=== PATIENT | male | born 1955 | race Caucasian/White ===

== ENCOUNTER 2021-10-25 00:36 | Emergency (ER) | payer MEDICARE, OTHER ==
[~2021-10-25] VITALS: Ht 182.9 cm; Wt 83.9 kg
[2021-10-25 00:36] VITALS: BP 110/66
--- NOTE | 2021-10-25 01:38 | NUR ---
CALLED THE FACILITY MULTIPLE TIMES TO FOLLOW WITH WITH NURSE JOEL RN REGARDING PT. AT FIRST WAS PLACED ON HOLD UNTIL IT GOT BUSY THEN NO ASNWER AFTER MULTIPLE CALL ATTEMPTS
--- NOTE | 2021-10-25 02:11 | NUR ---
Leslie soriano in [facility] - 10/25/21 at 0214 by DEVANTE COVID SWAB COLLECTED AND SENT TO[facility]
--- NOTE | 2021-10-25 02:27 | NUR ---
[facility] AT BEDSIDE FOR PT TRANSPORT BACK TO HIS FACILITY. REPORT GIVEN TO EMT. PT IS IN STABLE CONDITION FOR TRANSPORT
== END 2021-10-25 02:41 ==
LOC: ER 00:40
DX: I82.402 Acute embolism and thrombosis of unspecified deep veins of left lower extremity (principal)

== ENCOUNTER 2025-05-07 11:26 | Emergency (ER) | payer MEDICARE, OTHER ==
[~2025-05-07] VITALS: Ht 182.9 cm; Wt 84.8 kg
[2025-05-07 11:45] VITALS: BP 121/67; TEMP 98.5; O2SAT 96
[2025-05-07 12:33] LABS: BASOPHILS # (AUTO) 0.1 K/uL (0.0-0.2); BASOPHILS % (AUTO) 1.1 % (0.0-2.0); EOSINOPHILS # (AUTO) 0.5 K/uL (0.0-0.7); EOSINOPHILS % (AUTO) 8.1 % (0.0-6.0); HEMATOCRIT 45 % (39-51); HEMOGLOBIN 14.8 g/dL (13.5-17.5); LYMPHOCYTES # (AUTO) 1.7 K/uL (0.8-4.8); MEAN CORPUSCULAR HEMOGLOBIN 28 PG (26.0-33.0); MEAN CORPUSCULAR HGB CONC 33 g/dl (31.0-36.0); MEAN CORPUSCULAR VOLUME 87 fL (80-96); MONOCYTES # (AUTO) 0.7 K/uL (0.1-1.30); MONOCYTES % (AUTO) 12.2 % (2.0-12.0); NEUTROPHILS % (AUTO) 50.6 % (43.0-81.0); PLATELET COUNT (AUTO) 145 K/uL (150-450); RED BLOOD CELL COUNT(AUTO) 5.21 MIL/uL (4.5-6.0); RED CELL DISTRIBUTION WIDTH 14.5 % (11.5-15.0)
[2025-05-07 12:44] LABS: CALCIUM, SERUM 8.8 mg/dL (8.5-10.1); CREATININE 0.8 mg/dL (0.6-1.3); POTASSIUM 3.8 mmol/L (3.5-5.1)
[2025-05-07 12:59] LABS: INR 1.04 (0.91-1.10); PARTIAL THROMBOPLASTIN TIME 26.2 SEC (24.3-34.3)
[2025-05-07] MEDS ORDERED: IV NS 0.9% 250 ML IV ONE (13:10)
[2025-05-07] MEDS ORDERED: IOHEXOL-350 100 ML VIAL IV ONE (13:10)
[2025-05-07] MEDS ORDERED: POLY17PO4 PO (13:57)
[2025-05-07] MEDS ORDERED: FOLI0.4T6 PO (13:57)
[2025-05-07] MEDS ORDERED: CRAN300T PO (13:57)
[2025-05-07] MEDS ORDERED: FLUT16SP BNOSTRILS (13:57)
[2025-05-07] MEDS ORDERED: NALO4SPR NS (13:57)
[2025-05-07] MEDS ORDERED: PROP10TA10 PO (13:57)
[2025-05-07] MEDS ORDERED: ACET-73 PO (13:57)
[2025-05-07] MEDS ORDERED: ACET325T53 PO (13:57)
[2025-05-07] MEDS ORDERED: SUPER BETA PROSTATE PO (13:57)
[2025-05-07] MEDS ORDERED: TAMS-12 PO (13:57)
[2025-05-07] MEDS ORDERED: DIVA125C5 PO (13:57)
[2025-05-07] MEDS ORDERED: HYDR-4075 PO (13:57)
[2025-05-07] MEDS ORDERED: APIX5TAB4 PO (14:22)
[2025-05-07] MEDS ORDERED: APIXABAN 5 MG TABLET ONE (18:10)
[2025-05-07] MEDS: APIXABAN 5 MG TABLET PO STA (18:13)
== END 2025-05-07 19:56 ==
LOC: ER 11:30
DX: I82.4Z2 Acute embolism and thrombosis of unspecified deep veins of left distal lower extremity (principal); I10 Essential (primary) hypertension; N40.0 Benign prostatic hyperplasia without lower urinary tract symptoms; Z86.16 Personal history of COVID-19; Z86.73 Personal history of transient ischemic attack (TIA), and cerebral infarction without residual deficits; Z79.899 Other long term (current) drug therapy
CPT/HCPCS: 99285; 75635; 93971; 93005 ×2; 85025; 80048; 36415; 85730; J7050; Q9967